=== PATIENT | female | born 1945 | race Caucasian/White ===

== ENCOUNTER → 2016-07-26 | Outpatient (CLI) | payer OTHER ==
[~2016-07-26] MED LIST: ADVAI250I PO; ALBU0.086 NEB; BAYE81TA; CEFP500T PO; LORTA5 PO; MONT10TA2 PO; NEXI40CA PO
--- NOTE | 2016-08-15 12:31 | RSPPFT ---
DATE OF PROCEDURE: 07/26/16 COMMENTS: VOLUMES DYNAMIC: FVC and FEV1 normal. STATIC: VTG and RV mildly increased; TLC normal. FLOWS: FEV1% normal; FEF 25-75 mildly reduced. DIFFUSION: Normal. FLOW VOLUME LOOP: Terminal airflow obstruction. IMPRESSION: Very mild obstructive ventilatory defect with no reduction in diffusion and mild hyperinflation. Minimal change post-bronchodilator.
== END ==
LOC: HRSP 11:48
PROVIDERS: ATTEND Internal Medicine
DX: J45.909 Unspecified asthma, uncomplicated (principal)
CPT/HCPCS: 94060; 94620; 94726; 94729